=== PATIENT | female | born 1990 | race Hispanic/Latino ===

== ENCOUNTER 2017-09-10 00:49 | Emergency (ER) | payer SELFPAY ==
--- NOTE | 2017-09-10 02:23 | ER ---
Nurse's Notes [facility] Name: Lauren Tian Age: 27 yrs Sex: Female : 1990 Arrival Date: 09/10/2017 Time: 00:50 Bed 24 Private MD: Diagnosis: Pain in right shoulder-s/p Fall Presentation: 09/10 01:08 Presenting complaint: Patient states: hurt her right shoulder about an half hour ago. ao Transition of care: patient was not received from another setting of care. Onset of symptoms was September 10, 2017 at 00:30. Risk Assessment: Do you want to hurt yourself or someone else? Patient reports no desire to harm self or others. Initial Sepsis Screen: Does the patient meet any 2 criteria? No. Patient's initial sepsis screen is negative. Does the patient have a suspected source of infection? No. Patient's initial sepsis screen is negative. Care prior to arrival: None. 01:08 Method Of Arrival: Ambulatory ao 01:08 Acuity: RUCHI 4 ao Triage Assessment: 01:16 Injury Description: Shoulder injury. 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 - Social history:: Smoking status: Patient uses tobacco products, denies chronic smoking, but will smoke occasionally, Patient uses alcohol, occasionally. Patient/guardian denies using street drugs. - Ebola Screening: : Patient negative for fever greater than or equal to 101.5 degrees Fahrenheit, and additional compatible Ebola Virus Disease symptoms Patient denies exposure to infectious person Patient denies travel to an Ebola-affected area in the 21 days before illness onset. Screenin:15 Abuse screen: Denies threats or abuse. Denies injuries from another. Nutritional ao screening: No deficits noted. Tuberculosis screening: No symptoms or risk factors identified. Fall Risk None identified. Assessment: 01:12 General: Appears in no apparent distress. comfortable, Behavior is calm, cooperative, ao appropriate for age. Pain: Complains of pain in right shoulder. Neuro: Level of Consciousness is awake, alert, obeys commands, Oriented to person, place, time, situation, Appropriate for age Moves all extremities. Full function Speech is normal, Cardiovascular: Capillary refill < 3 seconds Patient's skin is warm and dry. Respiratory: Airway is patent Respiratory effort is even, unlabored, Respiratory pattern is regular, symmetrical. GI: Abdomen is non-distended. : No signs and/or symptoms were reported regarding the genitourinary system. EENT: No signs and/or symptoms were reported regarding the EENT system. Derm: Skin is pink, warm \T\ dry. normal, Skin temperature is warm. Musculoskeletal: Range of motion: limited in right shoulder Reports pain in right shoulder since 0030. Pain is 8 out of 10 on a pain scale. Vital Signs: 01:11 BP 129 / 87; Pulse 89; Resp 20; Temp 98.9(O); Pulse Ox 100% ; Weight 62.6 kg (R); ao Height 4 ft. 11 in. (149.86 cm) (R); Pain 8/10; 01:11 Body Mass Index 27.87 (62.60 kg, 149.86 cm) ao ED Course: 00:50 Patient arrived in ED. ds1 01:00 Presley Preston PA is PHCP. cp 01:00 Dick Prescott MD is Attending Physician. cp 01:08 Shaji Sears, RN is Primary Nurse. ao 01:10 Triage completed. ao 01:12 Arm band placed on right wrist. Patient placed in an exam room, Patient notified of ao wait time. 01:15 Patient has correct armband on for positive identification. Fall risk band placed. Bed ao in low position. Call light in reach. Pulse ox on. NIBP on. 01:52 X-ray completed. Portable x-ray completed in exam room. Patient tolerated procedure bb2 well. 01:54 XRAY Shoulder RIGHT 2 view In Process Unspecified. EDMS 02:22 Fede Gipson MD is Referral Physician. cp 02:41 No provider procedures requiring assistance completed. Patient did not have IV access ao during this emergency room visit. Administered Medications: No medications were administered Outcome: 02:22 Discharge ordered by . cp 02:42 Discharged to home ambulatory. ao 02:42 Condition: stable 02:42 Discharge instructions given to patient, Instructed on discharge instructions, follow up and referral plans. Demonstrated understanding of instructions, follow-up care, medications, Prescriptions given X 3. 02:42 Patient left the ED. ao Signatures: Dispatcher [employer] EDMS Angie Richardson ds1 Presley Preston PA PA cp Ortiz, Alex, RN RN Angie Banegas bb2
--- NOTE | 2017-09-10 02:23 | EDPHYS ---
Physician Documentation [facility] Name: Lauren Tian Age: 27 yrs Sex: Female : 1990 Arrival Date: 09/10/2017 Time: 00:50 Bed 24 Private MD: ED Physician Dick Prescott HPI: 09/10 01:17 This 27 yrs old Female presents to ER via Ambulatory with complaints of cp Shoulder Injury. 01:17 The patient or guardian complains of an injury, pain, that is acute, tenderness. right cp shoulder. Context: The problem was sustained outdoors, resulted from fall while on back of male friend. Onset: The symptoms/episode began/occurred just prior to arrival. 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 - Social history:: Smoking status: Patient uses tobacco products, denies chronic smoking, but will smoke occasionally, Patient uses alcohol, occasionally. Patient/guardian denies using street drugs. - Ebola Screening: : Patient negative for fever greater than or equal to 101.5 degrees Fahrenheit, and additional compatible Ebola Virus Disease symptoms Patient denies exposure to infectious person Patient denies travel to an Ebola-affected area in the 21 days before illness onset. ROS: 01:20 Constitutional: Negative for body aches, chills, fever, poor PO intake. cp 01:20 Eyes: Negative for injury, pain, redness, and discharge. cp 01:20 ENT: Negative for drainage from ear(s), ear pain, sore throat, difficulty swallowing, difficulty handling secretions. 01:20 Neck: Negative for pain with movement, pain at rest, stiffness, bony tenderness. 01:20 Cardiovascular: Negative for chest pain, edema, palpitations. 01:20 Respiratory: Negative for cough, shortness of breath, wheezing. 01:20 Abdomen/GI: Negative for abdominal pain, vomiting, diarrhea, constipation. 01:20 Back: Negative for injury or acute deformity, pain at rest, pain with movement. 01:20 MS/extremity: Positive for pain, swelling, tenderness, of the top of right shoulder, painful ROM, Negative for decreased range of motion, paresthesias. 01:20 Skin: Negative for cellulitis, rash. 01:20 Neuro: Negative for altered mental status, headache, loss of consciousness, syncope, near syncope. 01:20 All other systems are negative. Exam: 01:27 Constitutional: The patient appears in no acute distress, alert, awake, non-toxic, well cp developed, well nourished, uncomfortable. 01:27 Head/Face: Normocephalic, atraumatic. cp 01:27 Eyes: Periorbital structures: appear normal, Pupils: equal, round, and reactive to light and accomodation, Extraocular movements: intact throughout, Conjunctiva: normal, no exudate, no injection, Lids and lashes: appear normal, bilaterally. 01:27 ENT: External ear(s): are unremarkable, Nose: is normal, Mouth: Lips: moist, Oral mucosa: pink and intact, moist, Posterior pharynx: is normal, airway is patent. 01:27 Neck: C-spine: vertebral tenderness, is not appreciated, crepitus, is not appreciated, ROM/movement: is normal, is supple, without pain, no range of motions limitations, no nuchal rigidity. 01:27 Chest/axilla: Inspection: normal, Palpation: tenderness, that is moderate, of the right distal clavicle, that partially reproduces the patient's complaints. 01:27 Cardiovascular: Rate: normal, Rhythm: regular, Pulses: Pulses are 2+ in right radial artery. JVD: is not appreciated. 01:27 Respiratory: the patient does not display signs of respiratory distress, Respirations: normal, no use of accessory muscles, no retractions, no splinting, no tachypnea, labored breathing, is not present, Breath sounds: are clear throughout, no decreased breath sounds, no stridor, no wheezing. 01:27 Abdomen/GI: Exam negative for discomfort, distension, guarding, Inspection: abdomen appears normal. 01:27 Back: pain, is absent, ROM is normal. 01:27 Musculoskeletal/extremity: Extremities: grossly normal except: noted in the right AC joint: pain, swelling, tenderness, There is no evidence of decreased ROM, deformity, right shoulder, Sensation intact. 01:27 Skin: cellulitis, is not appreciated, no rash present. 01:27 Neuro: Orientation: to person, place \T\ time. Mentation: lucid, able to follow commands. Vital Signs: 01:11 BP 129 / 87; Pulse 89; Resp 20; Temp 98.9(O); Pulse Ox 100% ; Weight 62.6 kg (R); ao Height 4 ft. 11 in. (149.86 cm) (R); Pain 8/10; 01:11 Body Mass Index 27.87 (62.60 kg, 149.86 cm) ao MDM: 01:00 Patient medically screened. cp 02:20 Data reviewed: vital signs, nurses notes, radiologic studies, plain films, and as a cp result, I will discharge patient. 02:20 Differential diagnosis: Anterior dislocation with fracture, Anterior dislocation cp without fracture, Posterior dislocation with fracture, Posterior dislocation without fracture, AC joint separation, clavicle fracture. Test interpretation: by ED physician or midlevel provider: plain radiologic studies. 09/10 02:24 Order name: Urine Dipstick--Ancillary (enter results) rg2 09/10 01:15 Order name: XRAY Shoulder RIGHT 2 view cp 09/10 01:15 Order name: Urine Test (obtain specimen); Complete Time: 02:20 cp 09/10 01:15 Order name: Urine Dipstick-Ancillary (obtain specimen); Complete Time: 02:20 cp 09/10 02:20 Order name: Sling; Complete Time: 02:24 cp Administered Medications: No medications were administered Disposition: 04:14 Co-signature as Attending Physician, Dick rPescott MD I agree with the assessment and 4 plan of care. Disposition: 09/10/17 02:22 Discharged to Home. Impression: Pain in right shoulder - s/p Fall. - Condition is Stable. - Discharge Instructions: Acromioclavicular Injuries, Shoulder Pain. - Prescriptions for Cyclobenzaprine 10 mg Oral Tablet - take 1 tablet by ORAL route every 8 hours As needed no driving while taking medication; 20 tablet. Tramadol 50 mg Oral Tablet - take 1 tablet by ORAL route every 8 hours as needed; 15 tablet. Ibuprofen 800 mg Oral Tablet - take 1 tablet by ORAL route every 8 hours As needed take with food; 30 tablet. - Medication Reconciliation Form, Thank You Letter, Antibiotic Education, Prescription Opioid Use form. - Follow up: Fede Gipson MD; When: 2 - 3 days; Reason: Recheck today's complaints. - Problem is new. - Symptoms have improved. Signatures: Dispatcher [employer] EDMS Presley Preston PA PA cp Ortiz, Alex RN RN ao Dick Prescott MD MD tw4 Corrections: (The following items were deleted from the chart) 02:42 02:22 09/10/2017 02:22 Discharged to Home. Impression: Pain in right shoulder - s/p ao Fall. Condition is Stable. Forms are Medication Reconciliation Form, Thank You Letter, Antibiotic Education, Prescription Opioid Use. Follow up: Fede Gipson; When: 2 - 3 days; Reason: Recheck today's complaints. Problem is new. Symptoms have improved. cp
[2017-09-10] MEDS ORDERED: KETOROLAC 30 MG/ML INJ ONE (02:31)
[2017-09-10 05:20] LABS: Urine Blood NEGATIVE (NEG); Urine Glucose NEGATIVE (NEG); Urine Protein NEGATIVE (NEG); Urine Specific Gravity <1.005 (1.005-1.030)
--- NOTE | 2017-09-10 07:22 | RAD REPORT ---
EXAM DESCRIPTION: Shoulder Right 2 View - 09/10/2017 1:56 am CLINICAL HISTORY: Fall, shoulder pain COMPARISON: None. TECHNIQUE: Internal and external rotation views of the right shoulder were obtained. FINDINGS: There is no fracture or dislocation. AC joint is normal in appearance. Acromial humeral sg int space is normal range with no abnormal calcifications. Ribs and parenchyma of the upper chest nor mal range as well. No acute or suspicious findings. IMPRESSION: Negative two-view right shoulder examination.
== END 2017-09-10 02:42 | disposition home or self-care (01) ==
LOC: ER 00:49
DX: M25.511 Pain in right shoulder (principal); I10 Essential (primary) hypertension
CPT/HCPCS: 81003; 99283

== ENCOUNTER 2018-01-07 21:32 | Emergency (ER) | payer OTHER, SELFPAY ==
--- NOTE | 2018-01-07 22:33 | ER ---
Nurse's Notes [facility] Name: Lauren Tian Age: 27 yrs Sex: Female : 1990 Arrival Date: 01/07/2018 Time: 21:40 Bed Waiting Private MD: Diagnosis: Assessment: 01/07 22:31 Reassessment: Patient reported to registration that she will come back in the morning, kr2 she is not but is just having irregular bleeding. ED Course: 21:40 Patient arrived in ED. am2 Administered Medications: No medications were administered Outcome: 22:33 Patient left the ED. kr2 Signatures: Kandice Lackey am2 Destinee Lopez RN RN kr2
== END 2018-01-07 22:33 | disposition left against medical advice (07) ==
LOC: ER 21:32
DX: Z02.9 Encounter for administrative examinations, unspecified (principal)

== ENCOUNTER 2018-01-08 10:11 | Emergency (ER) | payer OTHER ==
--- NOTE | 2018-01-08 12:36 | ER ---
Nurse's Notes [facility] Name: Lauren Tian Age: 27 yrs Sex: Female : 1990 Arrival Date: 01/08/2018 Time: 10:15 Bed 17 Private MD: Diagnosis: Abnormal uterine and vaginal bleeding, unspecified Presentation: 01/08 10:38 Presenting complaint: Patient states: light red spotty vaginal bleeding since Friday sv but this has been going on for about 1.5 months. Bleeding happens after vaginal intercourse. Pt had a blood test 3.5 weeks ago and it was negative. Pt reports feeling jittery, dizziness since Friday. Transition of care: patient was not received from another setting of care. Onset of symptoms was January 05, 2018. Care prior to arrival: None. 10:38 Method Of Arrival: Ambulatory sv 10:38 Acuity: RUCHI 3 sv 12:45 Risk Assessment: Do you want to hurt yourself or someone else? Patient reports no aj desire to harm self or others. 12:45 Initial Sepsis Screen: Does the patient meet any 2 criteria? No. Patient's initial aj sepsis screen is negative. Does the patient have a suspected source of infection? No. Patient's initial sepsis screen is negative. 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 - Social history:: Smoking status: Patient/guardian denies using tobacco. - Ebola Screening: : No symptoms or risks identified at this time. - Family history:: not pertinent. - Hospitalizations: : No recent hospitalization is reported. - History obtained from: significant other. Screenin:15 Abuse screen: Denies threats or abuse. Denies injuries from another. Nutritional aj screening: No deficits noted. Tuberculosis screening: No symptoms or risk factors identified. Fall Risk None identified. Assessment: 12:15 General: Appears in no apparent distress. comfortable, Behavior is calm, cooperative, aj appropriate for age. Pain: Denies pain. Neuro: Level of Consciousness is awake, alert, obeys commands, Oriented to person, place, time, situation, Appropriate for age. Respiratory: Airway is patent Respiratory effort is even, unlabored, Respiratory pattern is regular, symmetrical. : Reports vaginal bleeding that is light flow. Derm: Skin is intact, is healthy with good turgor, Skin is pink, warm \T\ dry. normal. 12:43 Reassessment: Patient appears in no apparent distress at this time. No changes from aj previously documented assessment. Patient and/or family updated on plan of care and expected duration. Pain level reassessed. Patient is alert, oriented x 3, equal unlabored respirations, skin warm/dry/pink. Patient denies pain at this time. Vital Signs: 10:43 BP 133 / 90; Pulse 81; Resp 18; Temp 97.1; Pulse Ox 99% ; Weight 71.21 kg; Height 4 ft. sv 11 in. (149.86 cm); Pain 3/10; 12:43 BP 129 / 86; Pulse 78; Resp 18; Pulse Ox 100% on R/A; aj 10:43 Body Mass Index 31.71 (71.21 kg, 149.86 cm) sv ED Course: 10:15 Patient arrived in ED. mr 10:42 Triage completed. sv 10:44 Arm band placed on. sv 11:36 So Howell FNP is PHCP. kav 11:36 Lisandro Molina MD is Attending Physician. kav 11:42 Kandice Stein, TYREL is Primary Nurse. aj 12:15 Patient has correct armband on for positive identification. aj 12:15 No provider procedures requiring assistance completed. aj 12:34 Marivel Thorpe MD is Referral Physician. kav 12:43 Patient did not have IV access during this emergency room visit. aj Administered Medications: No medications were administered Outcome: 12:35 Discharge ordered by . kav 12:43 Discharged to home ambulatory. aj 12:43 Condition: good 12:43 Discharge instructions given to patient, Instructed on discharge instructions, follow up and referral plans. Demonstrated understanding of instructions, follow-up care. 13:02 Patient left the ED. aj Signatures: Joy Whipple RN RN sv Myers, Amanda, RN RN aj Vern, Katherine, FNP FARM CONSULTANTBrent lindsey Kathleen Sharp mr
--- NOTE | 2018-01-08 12:36 | EDPHYS ---
Physician Documentation [facility] Name: Lauren Tian Age: 27 yrs Sex: Female : 1990 Arrival Date: 01/08/2018 Time: 10:15 Bed 17 Private MD: ED Physician Lisandro Molina HPI: 01/08 12:05 This 27 yrs old Female presents to ER via Ambulatory with complaints of kav Vaginal Bleeding. 12:05 The patient presents with vaginal bleeding that is spotting, reports vaginal spotting kav after intercourse for the past 1.5 months. . Onset: The symptoms/episode began/occurred acutely, 1.5 month(s) ago. Modifying factors: The symptoms are alleviated by avoiding intercourse. Associated signs and symptoms: The patient has no apparent associated signs or symptoms. Severity of symptoms: At their worst the symptoms were mild, this morning. The patient is sexually active, reportedly has a single partner, does not use protection during intercourse. The patient has not experienced similar symptoms in the past. patient reports vaginal spotting after intercourse for past 1.5 months. she reports that she has an obgyn appt with dr. arthur on jan 21, 2018.. 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 - Social history:: Smoking status: Patient/guardian denies using tobacco. - Ebola Screening: : No symptoms or risks identified at this time. - Family history:: not pertinent. - Hospitalizations: : No recent hospitalization is reported. - History obtained from: significant other. ROS: 12:10 Positive for intermittent post-coital intercourse, Negative for urinary symptoms, kav urinary frequency, pelvic pain, burning with urination, vaginal discharge, missed period. 12:10 Constitutional: Negative for fever, chills, and weight loss, Eyes: Negative for injury, pain, redness, and discharge, ENT: Negative for injury, pain, and discharge, Neck: Negative for injury, pain, and swelling, Cardiovascular: Negative for chest pain, palpitations, and edema, Respiratory: Negative for shortness of breath, cough, wheezing, and pleuritic chest pain, Abdomen/GI: Negative for abdominal pain, nausea, vomiting, diarrhea, and constipation, Back: Negative for injury and pain, MS/Extremity: Negative for injury and deformity, Skin: Negative for injury, rash, and discoloration, Neuro: Negative for headache, weakness, numbness, tingling, and seizure, Psych: Negative for depression, anxiety, suicide ideation, homicidal ideation, and hallucinations, Allergy/Immunology: Negative for hives, rash, and allergies, Endocrine: Negative for neck swelling, polydipsia, polyuria, polyphagia, and marked weight changes, Hematologic/Lymphatic: Negative for swollen nodes, abnormal bleeding, and unusual bruising. Exam: 12:10 Constitutional: This is a well developed, well nourished patient who is awake, alert, kav and in no acute distress. Head/Face: Normocephalic, atraumatic. Eyes: Pupils equal round and reactive to light, extra-ocular motions intact. Lids and lashes normal. Conjunctiva and sclera are non-icteric and not injected. Cornea within normal limits. Periorbital areas with no swelling, redness, or edema. ENT: Nares patent. No nasal discharge, no septal abnormalities noted. Tympanic membranes are normal and external auditory canals are clear. Oropharynx with no redness, swelling, or masses, exudates, or evidence of obstruction, uvula midline. Mucous membranes moist. Neck: Trachea midline, no thyromegaly or masses palpated, and no cervical lymphadenopathy. Supple, full range of motion without nuchal rigidity, or vertebral point tenderness. No Meningismus. Chest/axilla: Normal chest wall appearance and motion. Nontender with no deformity. No lesions are appreciated. Cardiovascular: Regular rate and rhythm with a normal S1 and S2. No gallops, murmurs, or rubs. Normal PMI, no JVD. No pulse deficits. Respiratory: Lungs have equal breath sounds bilaterally, clear to auscultation and percussion. No rales, rhonchi or wheezes noted. No increased work of breathing, no retractions or nasal flaring. Abdomen/GI: Soft, non-tender, with normal bowel sounds. No distension or tympany. No guarding or rebound. No evidence of tenderness throughout. Back: No spinal tenderness. No costovertebral tenderness. Full range of motion. Skin: Warm, dry with normal turgor. Normal color with no rashes, no lesions, and no evidence of cellulitis. MS/ Extremity: Pulses equal, no cyanosis. Neurovascular intact. Full, normal range of motion. Neuro: Awake and alert, GCS 15, oriented to person, place, time, and situation. Cranial nerves II-XII grossly intact. Motor strength 5/5 in all extremities. Sensory grossly intact. Cerebellar exam normal. Normal gait. Psych: Awake, alert, with orientation to person, place and time. Behavior, mood, and affect are within normal limits. 12:10 : CVA tenderness, is absent, Sexual behavior: the patient is sexually active, and reports a single partner. Vital Signs: 10:43 BP 133 / 90; Pulse 81; Resp 18; Temp 97.1; Pulse Ox 99% ; Weight 71.21 kg; Height 4 ft. sv 11 in. (149.86 cm); Pain 3/10; 12:43 BP 129 / 86; Pulse 78; Resp 18; Pulse Ox 100% on R/A; aj 10:43 Body Mass Index 31.71 (71.21 kg, 149.86 cm) sv MDM: 11:36 Medical screening is not applicable. ka 12:33 Data reviewed: vital signs, nurses notes, lab test result(s), urinalysis, UPT:. [facility] 01/08 12:28 Order name: Urine Dipstick--Ancillary (enter results) 01/08 12:28 Order name: Urine --Ancillary (enter results) 01/08 11:57 Order name: Urine Dipstick-Ancillary (obtain specimen); Complete Time: 12:15 [facility] 01/08 11:57 Order name: Urine Test (obtain specimen); Complete Time: 12:15 ka Administered Medications: No medications were administered Disposition: 18:46 Co-signature as Attending Physician, Lisandro Molina MD. rn Disposition: 01/08/18 12:35 Discharged to Home. Impression: Abnormal uterine and vaginal bleeding, unspecified. - Condition is Stable. - Discharge Instructions: Abnormal Uterine Bleeding, [id number]. - Medication Reconciliation Form, Thank You Letter form. - Follow up: Marivel Thorpe MD; When: 01/21/2018; Reason: Recheck today's complaints, Continuance of care, Re-evaluation by your physician. - Problem is new. - Symptoms are unchanged. Signatures: Dispatcher [employer] Joy Askew RN RN sv Myers, Amanda, RN RN aj Vern, Katherine, Lisandro Burns MD MD rn clinical: (The following items were deleted from the chart) 13:02 12:35 01/08/2018 12:35 Discharged to Home. Impression: Abnormal uterine and vaginal aj bleeding, unspecified. Condition is Stable. Forms are Medication Reconciliation Form, Thank You Letter, Antibiotic Education, Prescription Opioid Use. Follow up: Marivel Maurilio; When: 01/21/2018; Reason: Recheck today's complaints, Continuance of care, Re-evaluation by your physician. Problem is new. Symptoms are unchanged. césar
[2018-01-08 13:09] LABS: Urine Blood 3+ (NEG); Urine Glucose NEGATIVE (NEG); Urine Protein NEGATIVE (NEG); Urine Specific Gravity 1.015 (1.005-1.030)
== END 2018-01-08 13:02 | disposition home or self-care (01) ==
LOC: ER 10:11
DX: N93.9 Abnormal uterine and vaginal bleeding, unspecified (principal); I10 Essential (primary) hypertension
CPT/HCPCS: 81003; 81025; 99281